=== PATIENT | female | born 1970 | race Caucasian/White ===

== ENCOUNTER 2016-06-07 11:28 | Emergency (ER) | payer MEDICAID ==
[~2016-06-07] VITALS: Ht 274.3 cm; Wt 80.0 kg
[2016-06-07 11:35] VITALS: BP 172/79; PULSE 109; RESP 16; TEMP 97.9; O2SAT 99
--- NOTE | 2016-06-07 13:13 | PD ---
HPI Chief Complaint: Cardiac Complaint Time Seen by Provider: 13:13 Travel History International Travel<30 days: No Contact w/Intl Traveler<30days: No Traveled to known affect area: No History of Present Illness HPI 46-year-old female presents to the ED for evaluation of "palpitations.". Onset 4 days ago while the patient was "partying." She endorses drinking several alcoholic beverages as well as smoking marijuana. She endorses feeling "as if my heart is skipping a beat." She denies associated chest pain, diaphoresis, shortness of breath, nausea or vomiting. She states that this has happened several times since. She denies headache, dizziness, fevers, chills, abdominal pain, back pain, dysuria, swelling of the extremities. She endorses a 10-pack- year smoking history, familial history of mother with NC in the mid 30s to early 40s. PFSH Past Medical History ?: Not LMP: 05/15/2016 Social History Tobacco Use: Yes (currrent / PPD) Allergies-Medications (Allergen,Severity, Reaction): Coded Allergies: No Known Allergies (Unverified , 06/07/16) Reported Meds & Prescriptions Reported Meds & Active Scripts Active No Active Prescriptions or Reported Medications Review of Systems Except as stated in HPI: all other systems reviewed are Neg Physical Exam Narrative GENERAL: Well-nourished, well-developed mildly anxious white female in no acute distress. SKIN: Focused skin assessment warm/dry. HEAD: Normocephalic. EYES: No scleral icterus. No injection or drainage. NECK: Supple, trachea midline. No JVD or lymphadenopathy. CARDIOVASCULAR: Regular rate and rhythm without murmurs, gallops, or rubs. 2+ DP and radial pulses bilaterally. RESPIRATORY: Breath sounds clear and equal bilaterally. No accessory muscle use. GASTROINTESTINAL: Abdomen soft, non-tender, nondistended. Active bowel sounds. MUSCULOSKELETAL: No cyanosis, or edema. Negative Homans sign bilaterally. Patient is ambulatory and moves extremities spontaneously. BACK: Nontender without obvious deformity. No CVA tenderness. Data Data Last Documented VS Vital Signs Date Time Temp Pulse Resp B/P Pulse Ox O2 Delivery O2 Flow Rate FiO2 06/07/16 14:27 98 18 162/78 99 06/07/16 13:37 Room Air 06/07/16 11:35 97.9 Orders Electrocardiogram (06/07/16 ) Ckmb (Isoenzyme) Profile (06/07/16 13:22) Complete Blood Count With Diff (06/07/16 13:22) Comprehensive Metabolic Panel (06/07/16 13:22) Magnesium (Mg) (06/07/16 13:22) Prothrombin Time / Inr (Pt) (06/07/16 13:22) Act Partial Throm Time (Ptt) (06/07/16 13:22) Troponin I (06/07/16 13:22) Chest, Single Ap (06/07/16 13:22) Ecg Monitoring (06/07/16 13:22) Bilateral Bp Monitoring (06/07/16 13:22) Iv Access Insert/Monitor (06/07/16 13:22) Oximetry (06/07/16 13:22) Sodium Chloride 0.9% Flush (Ns Flush) (06/07/16 13:30) Sodium Chlorid 0.9% 500 Ml Inj (Ns 500 M (06/07/16 13:30) Labs Laboratory Tests Test 06/07/16 13:25 White Blood Count 12.7 TH/MM3 Red Blood Count 4.51 MIL/MM3 Hemoglobin 15.0 GM/DL Hematocrit 43.4 % Mean Corpuscular Volume 96.3 FL Mean Corpuscular Hemoglobin 33.4 PG Mean Corpuscular Hemoglobin 34.6 % Concent Red Cell Distribution Width 12.7 % Platelet Count 251 TH/MM3 Mean Platelet Volume 8.5 FL Neutrophils (%) (Auto) 70.9 % Lymphocytes (%) (Auto) 20.0 % Monocytes (%) (Auto) 7.4 % Eosinophils (%) (Auto) 1.1 % Basophils (%) (Auto) 0.6 % Neutrophils # (Auto) 9.0 TH/MM3 Lymphocytes # (Auto) 2.5 TH/MM3 Monocytes # (Auto) 0.9 TH/MM3 Eosinophils # (Auto) 0.1 TH/MM3 Basophils # (Auto) 0.1 TH/MM3 CBC Comment DIFF FINAL Differential Comment Prothrombin Time 10.0 SEC Prothromb Time International 0.9 RATIO Ratio Activated Partial 25.6 SEC Thromboplast Time Sodium Level 138 MEQ/L Potassium Level 4.1 MEQ/L Chloride Level 106 MEQ/L Carbon Dioxide Level 25.0 MEQ/L Anion Gap 7 MEQ/L Blood Urea Nitrogen 15 MG/DL Creatinine 0.81 MG/DL Estimat Glomerular Filtration 75 ML/MIN Rate Random Glucose 89 MG/DL Calcium Level 9.0 MG/DL Magnesium Level 2.3 MG/DL Total Bilirubin 0.2 MG/DL Aspartate Amino Transf 13 U/L (AST/SGOT) Alanine Aminotransferase 19 U/L (ALT/SGPT) Alkaline Phosphatase 94 U/L Total Creatine Kinase 68 U/L Troponin I LESS THAN 0.02 NG/ML Total Protein 7.6 GM/DL Albumin 4.0 GM/DL MDM Medical Decision Making Medical Screen Exam Complete: Yes Emergency Medical Condition: Yes Differential Diagnosis Anxiety versus arrhythmia versus angina versus less likely PE versus less likely NC versus other Narrative Course 46-year-old female presents to the ED for evaluation of "palpitations". Onset 4 days ago while the patient was "partying." She endorses drinking several alcoholic beverages as well as smoking marijuana. She denies associated chest pain, diaphoresis, shortness of breath, nausea or vomiting. She denies headache , dizziness, fevers, chills, abdominal pain, back pain, dysuria, swelling of the extremities. She endorses a [id number] smoking history. Vitals reviewed. Patient is tachycardic in triage but this resolves in the exam room. Physical exam reveals a well-appearing white female in no acute distress. Chest clear to auscultation bilaterally. Abdomen soft, nontender. Equal pulses in the distal extremities. No lower extremity edema. EKG, cardiac enzymes, CBC, CMP unremarkable. Discussed the results of the workup with the patient who was reassured by the negative findings. Encouraged her to stop smoking, avoid binge drinking, discontinue marijuana use, follow-up with the primary care provider. She indicated understanding of the instructions and is agreeable to the care plan. She is stable and discharged home. Diagnosis Primary Impression: Intermittent palpitations Referrals: Primary Care Physician Patient Instructions: General Instructions, Palpitations (ED) Additional Instructions: Rest, hydrate. Return to normal, gentle activities as tolerated. Follow-up with the primary care provider as discussed. Return to the ED for any urgent or emergent medical condition. Scripts No Active Prescriptions or Reported Meds Disposition: 01 DISCHARGE HOME Condition: Stable Shanel Fonseca Jun 07, 2016 13:13
[2016-06-07] MEDS ORDERED: SODIUM CHLORID 0.9% 500 ML INJ 500 ML IV ONE (13:30)
[2016-06-07] MEDS ORDERED: SODIUM CHLORIDE 0.9% FLUSH 10 ML FLUSH IVF PRN (13:30)
[2016-06-07 13:37] VITALS: O2SAT 98
[2016-06-07 13:41] LABS: BASOPHIL # 0.1 TH/MM3 (0-0.2); BASOPHIL % 0.6 % (0.0-2.0); EOSINOPHIL # 0.1 TH/MM3 (0-0.4); EOSINOPHIL % 1.1 % (0.0-4.0); HEMATOCRIT 43.4 % (35.0-46.0); HEMO FLAGS DIFF FINAL; LYMPHOCYTE # 2.5 TH/MM3 (1.0-4.8); MEAN CELL VOLUME 96.3 FL (80.0-100.0); MEAN CORPUSCULAR HEMOGLOBIN 33.4 PG (27.0-34.0); MEAN CORPUSCULAR HGB CONC 34.6 % (32.0-36.0); MONO % 7.4 % (0.0-8.0); NEUT % 70.9 % (16.0-70.0); PLATELET COUNT 251 TH/MM3 (150-450); RED BLOOD COUNT 4.51 MIL/MM3 (4.00-5.30); RED CELL DISTRIBUTION WIDTH 12.7 % (11.6-17.2); WHITE BLOOD COUNT 12.7 TH/MM3 (4.0-11.0)
[2016-06-07 13:53] LABS: APTT (PATIENT) 25.6 SEC (24.3-30.1); INTERNATIONAL NORMALIZED RATIO 0.9 RATIO
[2016-06-07 13:56] LABS: ALT (GPT) 19 U/L (10-53); ANION GAP 7 MEQ/L (5-15); AST (GOT) 13 U/L (15-37); BLOOD UREA NITROGEN 15 MG/DL (7-18); CHLORIDE 106 MEQ/L (98-107); GLOMERULAR FILTRATION RATE 75 ML/MIN (>89); MAGNESIUM 2.3 MG/DL (1.5-2.5); POTASSIUM 4.1 MEQ/L (3.5-5.1); SODIUM (NA) 138 MEQ/L (136-145)
[2016-06-07 14:00] LABS: ALKALINE PHOSPHATASE 94 U/L (45-117); TOTAL BILIRUBIN ADULT 0.2 MG/DL (0.2-1.0)
[2016-06-07 14:03] LABS: CREATINE KINASE 68 U/L (26-192)
--- NOTE | 2016-06-07 14:26 | RADRPT ---
EXAM DATE/TIME: 06/07/2016 13:25 [facility] COMPARISON: No previous studies available for comparison. INDICATIONS : Palpitations. MEDICAL HISTORY : Tachycardia SURGICAL HISTORY : None. ENCOUNTER: Initial ACUITY: 3 days PAIN SCORE: 0/10 LOCATION: Bilateral chest FINDINGS: A single view of the chest demonstrates the lungs to be symmetrically aerated without evidence of mas s, infiltrate or effusion. The cardiomediastinal contours are unremarkable. Osseous structures are intact. CONCLUSION: No acute cardiopulmonary process. Jaylon Mercedes MD on June 07, 2016 at 14:23 Board Certified Radiologist. This report was verified electronically.
[2016-06-07 14:27] VITALS: BP 162/78
--- NOTE | 2016-06-07 14:27 | PD ---
Data Data Last Documented VS Vital Signs Date Time Temp Pulse Resp B/P Pulse Ox O2 Delivery O2 Flow Rate FiO2 06/07/16 13:37 98 Room Air 06/07/16 13:37 94 18 06/07/16 11:35 97.9 172/79 Orders Electrocardiogram (06/07/16 ) Electrocardiogram (06/07/16 13:22) Ckmb (Isoenzyme) Profile (06/07/16 13:22) Complete Blood Count With Diff (06/07/16 13:22) Comprehensive Metabolic Panel (06/07/16 13:22) Magnesium (Mg) (06/07/16 13:22) Prothrombin Time / Inr (Pt) (06/07/16 13:22) Act Partial Throm Time (Ptt) (06/07/16 13:22) Troponin I (06/07/16 13:22) Chest, Single Ap (06/07/16 13:22) Ecg Monitoring (06/07/16 13:22) Bilateral Bp Monitoring (06/07/16 13:22) Iv Access Insert/Monitor (06/07/16 13:22) Oximetry (06/07/16 13:22) Sodium Chloride 0.9% Flush (Ns Flush) (06/07/16 13:30) Sodium Chlorid 0.9% 500 Ml Inj (Ns 500 M (06/07/16 13:30) Labs Laboratory Tests Test 06/07/16 13:25 White Blood Count 12.7 TH/MM3 Red Blood Count 4.51 MIL/MM3 Hemoglobin 15.0 GM/DL Hematocrit 43.4 % Mean Corpuscular Volume 96.3 FL Mean Corpuscular Hemoglobin 33.4 PG Mean Corpuscular Hemoglobin 34.6 % Concent Red Cell Distribution Width 12.7 % Platelet Count 251 TH/MM3 Mean Platelet Volume 8.5 FL Neutrophils (%) (Auto) 70.9 % Lymphocytes (%) (Auto) 20.0 % Monocytes (%) (Auto) 7.4 % Eosinophils (%) (Auto) 1.1 % Basophils (%) (Auto) 0.6 % Neutrophils # (Auto) 9.0 TH/MM3 Lymphocytes # (Auto) 2.5 TH/MM3 Monocytes # (Auto) 0.9 TH/MM3 Eosinophils # (Auto) 0.1 TH/MM3 Basophils # (Auto) 0.1 TH/MM3 CBC Comment DIFF FINAL Differential Comment Prothrombin Time 10.0 SEC Prothromb Time International 0.9 RATIO Ratio Activated Partial 25.6 SEC Thromboplast Time Sodium Level 138 MEQ/L Potassium Level 4.1 MEQ/L Chloride Level 106 MEQ/L Carbon Dioxide Level 25.0 MEQ/L Anion Gap 7 MEQ/L Blood Urea Nitrogen 15 MG/DL Creatinine 0.81 MG/DL Estimat Glomerular Filtration 75 ML/MIN Rate Random Glucose 89 MG/DL Calcium Level 9.0 MG/DL Magnesium Level 2.3 MG/DL Total Bilirubin 0.2 MG/DL Aspartate Amino Transf 13 U/L (AST/SGOT) Alanine Aminotransferase 19 U/L (ALT/SGPT) Alkaline Phosphatase 94 U/L Total Creatine Kinase 68 U/L Troponin I LESS THAN 0.02 NG/ML Total Protein 7.6 GM/DL Albumin 4.0 GM/DL MDM Supervised Visit with ANANDA: Yes Narrative Course I, Dr. Fitzpatrick, have reviewed the advance practice practioner's documentation and am in agreement, met with the patient face to face, made the diagnosis, and the medical decision making was done by me. *My assessment and Findings: 46-year-old female here with palpitations 4 days after drinking alcohol heavily and smoking marijuana. No chest pain, shortness of breath. She does have history of anxiety has been admitting to same recently. Regular rate and rhythm, clear to auscultation bilaterally. Asymptomatic when ambulating. Suspect anxiety versus PVC, PACs, substance abnormality, electrolyte abnormality. Twelve-lead EKG, laboratory workup and chest x-ray unremarkable. No arrhythmia detected well patient's been in the emergency department. Encourage substance cessation and discharged home. Diagnosis Primary Impression: Intermittent palpitations Referrals: Primary Care Physician Patient Instructions: General Instructions, Palpitations (ED) Departure Forms: Tests/Procedures Additional Instruction: Rest, hydrate. Return to normal, gentle activities as tolerated. Follow-up with the primary care provider as discussed. Return to the ED for any urgent or emergent medical condition. Scripts No Active Prescriptions or Reported Meds Disposition: 01 DISCHARGE HOME Condition: Stable Ana Paula iFtzpatrick MD Jun 07, 2016 14:27
--- NOTE | 2016-06-08 13:02 | EKG ---
Date Performed: 06/07/2016 Time Performed: 12:06:14 PTAGE: 46 years EKG: Sinus rhythm NORMAL ECG PREVIOUS TRACING : 06/07/2016 12.03, image not available. DOCTOR: Geovani Garcia Interpretating Date/Time 06/08/2016 13:00:54
== END 2016-06-07 14:35 | disposition home or self-care (01) ==
LOC: NEPE 11:28
DX: R00.2 Palpitations (principal); R00.0 Tachycardia, unspecified
CPT/HCPCS: 71010; 80053; 82550; 83735; 84484; 85025; 85610; 85730; 93005; 99285; J7040